=== PATIENT | female | born 1955 | race African-American/Black ===

== ENCOUNTER 2024-10-25 17:50 | Emergency (ER) | payer MEDICARE ==
[~2024-10-25] VITALS: Ht 175.3 cm; Wt 66.2 kg
[2024-10-25] VITALS (13 sets, daily range): BP systolic 105–153; BP diastolic 69–84
== END 2024-10-25 23:04 | disposition home or self-care (01) ==
LOC: ED 17:50
DX: S62.012A Displaced fracture of distal pole of navicular [scaphoid] bone of left wrist, initial encounter for closed fracture (principal); S62.172A Displaced fracture of trapezium [larger multangular], left wrist, initial encounter for closed fracture; I12.9 Hypertensive chronic kidney disease with stage 1 through stage 4 chronic kidney disease, or unspecified chronic kidney disease; N18.9 Chronic kidney disease, unspecified; G62.9 Polyneuropathy, unspecified; W19.XXXA Unspecified fall, initial encounter; Y92.009 Unspecified place in unspecified non-institutional (private) residence as the place of occurrence of the external cause; Z21 Asymptomatic human immunodeficiency virus [HIV] infection status